=== PATIENT | male | born 1995 ===

== ENCOUNTER 2016-08-11 17:03 | Emergency (ER) | payer OTHER ==
[2016-08-11 17:12] VITALS: BMI 27.9
--- NOTE | 2016-08-11 17:17 | ED PDOC ---
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 States he fell and landed on shoulder while playing soccer. Denies LOC, nauea, vomiting, focal weakness, any other complaint. (JackieLudivina A) Past Medical History - Provider Review Nursing Documentation Reviewed: Yes <Ludivina Mejia A - Last Filed: 08/11/16 20:35> Family/Social History - Physician Review Nursing Documentation Reviewed: Yes Family/Social History: Unknown Family HX <Ludivina Mejia A - Last Filed: 08/11/16 20:35> Allergies/Home Meds <Wang Cloud - Last Filed: 08/11/16 18:39> <Ludivina Mejai A - Last Filed: 08/11/16 20:35> Allergies/Adverse Reactions: Allergies No Known Allergies Allergy (Verified 08/11/16 17:12) Home Medications: Home Meds Medication Instructions Recorded Confirmed No Known Home Med 08/11/16 08/11/16 Review of Systems - Physician Review All systems were reviewed & negative as marked: Yes - Review of Systems Constitutional: Normal Eyes: Normal ENT: Normal Respiratory: Normal Cardiovascular: Normal Gastrointestinal: Normal Genitourinary Male: Normal Musculoskeletal: Arthralgias (LEft shoulder pain) Skin: Normal Neurological: Normal Endocrine: Normal Hemo/Lymphatic: Normal Psychiatric: Normal <Ludivina Mejia A - Last Filed: 08/11/16 20:35> Physical Exam Vital Signs Reviewed: Yes Temperature: Afebrile Blood Pressure: Normal Pulse: Regular Respiratory Rate: Normal Appearance: Positive for: Well-Appearing, Non-Toxic, Comfortable Pain Distress: None Mental Status: Positive for: Alert and Oriented X 3 - Systems Exam Head: Present: Atraumatic, Normocephalic Pupils: Present: PERRL Extroacular Muscles: Present: EOMI Conjunctiva: Present: Normal Mouth: Present: Moist Mucous Membranes Neck: Present: Normal Range of Motion Respiratory/Chest: Present: Clear to Auscultation, Good Air Exchange. No: Respiratory Distress, Accessory Muscle Use Cardiovascular: Present: Regular Rate and Rhythm, Normal S1, S2. No: Murmurs Abdomen: Present: Normal Bowel Sounds. No: Tenderness, Distention, Peritoneal Signs Back: Present: Normal Inspection Upper Extremity: Present: NORMAL PULSES, Tenderness (LEft shoulder), Neurovascularly Intact, Capillary Refill < 2s, Deformity. No: Cyanosis, Edema, Normal ROM (Arm in a flex position unable to evaluate secondary to pain), Swelling, Temperature Abnormalties Lower Extremity: Present: Normal Inspection. No: Edema Neurological: Present: GCS=15, CN II-XII Intact, Speech Normal Skin: Present: Warm, Dry, Normal Color. No: Rashes Psychiatric: Present: Alert, Oriented x 3, Normal Insight, Normal Concentration <Diru,Happiness A - Last Filed: 08/11/16 20:35> Vital Signs Temp Pulse Resp BP Pulse Ox 08/11/16 19:39 85 18 132/72 98 08/11/16 18:44 94 H 18 148/97 H 100 08/11/16 17:55 98.9 F 89 20 136/87 100 08/11/16 17:20 100 H 18 149/100 H 98 08/11/16 17:12 97.9 F 116 H 20 159/119 H 100 - RAD Interpretation Radiology Orders: 08/11/16 17:14 SHOULDER LEFT [RAD] Stat 08/11/16 17:18 HUMERUS LEFT [RAD] Stat 08/11/16 18:23 SHOULDER LEFT [RAD] Stat - Medication Orders Current Medication Orders: Discontinued Medications Etomidate (Amidate) 10 mg IV STAT STA Stop: 08/11/16 18:03 Last Admin: 08/11/16 18:28 Dose: 10 MG eMAR Start Stop Document 08/11/16 18:28 EWO (Rec: 08/11/16 18:30 EWO [id number]) Intravenous Solution Start Date 08/11/16 Start Time 17:50 End Date 08/11/16 End time 17:55 Total Infusion Time 5 Fentanyl (Fentanyl) 100 mcg IV ONCE ONE Stop: 08/11/16 18:03 Last Admin: 08/11/16 18:31 Dose: 100 MCG eMAR Start Stop Document 08/11/16 18:31 EWO (Rec: 08/11/16 18:31 EWO [id number]) Intravenous Solution Start Date 08/11/16 Start Time 17:55 End Date 08/11/16 End time 17:56 Total Infusion Time 1 Morphine Sulfate (Morphine) 6 mg IVP STAT STA Stop: 08/11/16 17:15 Last Admin: 08/11/16 17:26 Dose: 6 MG IVP Administration Document 08/11/16 17:26 EWO (Rec: 08/11/16 17:26 EWO [id number]) Charges for Administration # of IVP Administrations 1 ED Procedural Sedation - Pre Anesthesia Assessment Past Medical History: Medications Reviewed Previous Surgies: Reviewed Family History/Social History: Reviewed - Physical Exam/Review of Systems Vital Signs Reviewed: Yes Cardiovascular: Regular Rate and Rhythm Respiratory/Chest: Clear to Auscultation, Good Air Exchange Neurological: GCS=15, CN II-XII Intact, Speech Normal, Motor Func Grossly Intact , Normal Sensory Function, Normal Cerebellar Funct, Other (+2 radial pulses. Axillary nerve intact on exam. ) Abdomen: denies: Tenderness, Distention Mental Status: Alert and Oriented X 3 - Pre-Procedure Airway Assessment History of difficult intubation or surgical airway (i.e trach):: No Inability to extend neck:: No Mouth opening less than two finger breadth:: No Diagnosis of sleep apnea:: No Less than three finger breadth to hyoid bone:: No ASA Criteria: 1 - Healthy, normal. 2 - Mild systemic disease (No functional limitations, mildline obesity, DM withot complications, Hypertention). 3 - Severe systemic disease (Some functional limitation, stable angina, morbid obesity, controlled COPD/Asthma/CHF). 4 - Sever systemic disease constant threat to life (Unstable angina, active symptoms of COPD/Asthma, CHF/ Hypertension. 5 - Moribund ASA Clarification: ASA I Mallampati (airway): Class I <Wang Cloud - Last Filed: 08/11/16 18:39> <Ludivina Mejia - Last Filed: 08/11/16 20:35> - Pre Anesthesia Assessment Chief Complaint: Upper Extremity Problem/Injury Nursing ED Procedural Sedation: ER Moderate Sedation Start: 08/11/16 18: 35 Freq: Status: Discharge Document 08/11/16 17:55 EWO (Rec: 08/11/16 18:41 JANET [id number]) Mod Sedation Time Out Process Time Out Process Patient identification (MR# and name Yes from ID Band) Procedure verified Yes Consent read aloud and agreed upon Yes Correct Site/Side marked and visibe to Yes team after prepping and draping (unless exempt) Prophylactic antibiotic given (if Not Applicable applicable) List all team members present Dr. Cloud, EMT Rich RN. TEDDY Hood Happiness All team members are in agreement Yes Pre-Procedure Mod Sedation Pre-Procedure Checklist Patient's identity verified by Patient stating name Patient stating [facility] ID bracelet Pre Procedure Checklist BP monitor Signed consent Ambu bag Patient IV Patient ID Oxygen Airway Code Cart Suction set up Pre Anesthesia Assessment Chief Complaint Upper Extremity Problem/Injury Past Medical History Medications Reviewed Allergies Reviewed Record Review Previous Surgies Reviewed Family History/Social History Reviewed Physical Exam/Review of Systems Vital Signs Reviewed Yes Cardiovascular Regular Rate and Rhythm Respiratory/Chest Clear to Auscultation Good Air Exchange Neurological GCS=15 Mental Status Alert and Oriented X 3 Level of Consciousness 1 = Alert Pre-Proceduer Airway Assessment History of difficult intubation or No surgical airway (i.e trach): Moderate Sedation VS & Pain Ax Level of Consciousness Level of Consciousness 1 = Alert Temperature Temperature (97.6 F-99.6 F) 98.9 F Pulse Pulse Rate (60-90) 78 Respirations Respiratory Rate (12-24) 18 Oxygen Delivery Method Room Air SPO2 (95-100) 100 O2 LPM (L/min) 2 Blood Pressure Blood Pressure (100/60-150/90) 139/87 Pain Pain Intensity 3 Pain Scale Used Numeric Intra-Procedure Vital Signs Vital Signs and Pain Assessment Blood Pressure (100/60-150/90) 159/92 Pulse Rate (60-90) 82 Respiratory Rate (12-24) 18 Level of Consciousness 3 = Frequently Drowsy, Easy to Arouse Pain Intensity 0 Intra-Procedure Vital Signs #2 Vital Signs and Pain Assessment Blood Pressure (100/60-150/90) 136/87 Pulse Rate (60-90) 89 Respiratory Rate (12-24) 20 Level of Consciousness 3 = Frequently Drowsy, Easy to Arouse REACT Score REACT Score Respirations Spontaneous Respirations > 10 Without Airway Energy Moves Legs - Head Lift Alertness Gentle Stimuli Only Circulation BP 80 - PreOp Full Pulse Temperature Axillary temperature is >96 degrees Farenheit Total 7 Created 08/11/16 18:35 EWO (Rec: 08/11/16 18:35 EWO [id number]) Edit Status 08/11/16 20:20 RAQUEL CESPEDES (Rec: 08/11/16 20:20 RAQUEL CESPEDES J- [id number]) Active=>Discharge Patient was in the supine position. Consent obtained by and TEDDY Florence. Cosigned by HÉCTOR Alan. Patient on Oxygen during procedure with great oxygenation. Was on monitor during procedure. Technique used: Traction retraction technique by me and EMT Rich pulling retraction. Patient's shoulder reduced successfully. Placed immediately in shoulder immobilizer. Post-reduction xray ordered. (Wang Cloud) - Intra-Procedure (Medications) Medications Given: Discontinued Medications Etomidate (Amidate) 10 mg IV STAT STA Stop: 08/11/16 18:03 Last Admin: 08/11/16 18:28 Dose: 10 MG eMAR Start Stop Document 08/11/16 18:28 EWO (Rec: 08/11/16 18:30 EWO [id number]) Intravenous Solution Start Date 08/11/16 Start Time 17:50 End Date 08/11/16 End time 17:55 Total Infusion Time 5 Fentanyl (Fentanyl) 100 mcg IV ONCE ONE Stop: 08/11/16 18:03 Last Admin: 08/11/16 18:31 Dose: 100 MCG eMAR Start Stop Document 08/11/16 18:31 EWO (Rec: 08/11/16 18:31 EWO [id number]) Intravenous Solution Start Date 08/11/16 Start Time 17:55 End Date 08/11/16 End time 17:56 Total Infusion Time 1 Morphine Sulfate (Morphine) 6 mg IVP STAT STA Stop: 08/11/16 17:15 Last Admin: 08/11/16 17:26 Dose: 6 MG IVP Administration Document 08/11/16 17:26 EWO (Rec: 08/11/16 17:26 [place] [id number]) Charges for Administration # of IVP Administrations 1 Etomidate and Fentanyl given during procedure. Morphine was given much earlier as documented by RN note. (Wang Cloud) - Post-Procedure Post Procedure Note: 6:39 pm: Patient awake, alert and oriented post sedation. His pain is controlled and he feels much much better. He denies any numbness or weakness. Neuro exam is normal. Sensation intact. Axillary nerve sensation intact. Patient post-reduction x-ray shows no dislocation. (Wang Cloud) Disposition/Present on Arrival <Wang Cloud - Last Filed: 08/11/16 18:39> - Present on Arrival Any Indicators Present on Arrival: No History of DVT/PE: No History of Uncontrolled Diabetes: No Urinary Catheter: No History of Decub. Ulcer: No History Surgical Site Infection Following: None - Disposition Have Diagnosis and Disposition been Completed?: Yes Disposition Time: 20:25 Patient Plan: Discharge <Ludivina Mejia - Last Filed: 08/11/16 20:35> - Disposition Diagnosis: Shoulder dislocation Disposition: HOME/ ROUTINE Condition: STABLE Discharge Instructions (ExitCare): Shoulder Dislocation (ED) Additional Instructions: Follow up with your doctor/Orthopedic Return to ED for any new or worsening symptoms Referrals: PCP,RICHELLE [Primary Care Provider] - Follow up with primary Ozzy Brennan MD [Staff Provider] - Follow up with primary
[2016-08-11] MEDS ORDERED: Etomidate 20 mg/10ml Inj IVP STA (18:01)
[2016-08-11] MEDS ORDERED: Etomidate 20 mg/10ml Inj IV STA (18:02)
--- NOTE | 2016-08-11 18:11 | RAD ---
PROCEDURE: Radiographs of the Left Shoulder HISTORY: shoulder pain s/p trauma COMPARISON: prior. FINDINGS: BONES: There is no acute displaced fracture or dislocation. JOINTS: There is apparent glenohumeral dislocation. SOFT TISSUES: Normal. OTHER FINDINGS: None. IMPRESSION: Limited examination as only one view was possible due to patient's condition allowing for this,, apparent glenohumeral dislocation. No acute displaced fracture.
--- NOTE | 2016-08-11 18:11 | RAD ---
PROCEDURE: Radiographs of the left humerus. HISTORY: arm pain s/p trauma COMPARISON: None. FINDINGS: BONES: There is no acute displaced fracture. There is inferior glenohumeral dislocation. SOFT TISSUES: Normal. OTHER FINDINGS: None. IMPRESSION: Inferior glenohumeral dislocation. No acute fracture.
[2016-08-11 18:42] VITALS: TEMP 98.9
[2016-08-11 18:45] VITALS: RESP 18
[2016-08-11 19:40] VITALS: BP 132/72; PULSE 85; O2SAT 98
--- NOTE | 2016-08-12 10:59 | RAD ---
PROCEDURE: Radiographs of the Left Shoulder HISTORY: Post reduction COMPARISON: 08/11/2016 at 5:28 p.m. FINDINGS: BONES: Bone alignment and mineralization are normal. There is no acute fracture JOINTS: There has been interval successful closed reduction. Glenohumeral and acromioclavicular joints are normal. SOFT TISSUES: Normal. OTHER FINDINGS: None. IMPRESSION: Successful closed reduction of glenohumeral dislocation.
== END 2016-08-11 20:11 | disposition home or self-care (01) ==
LOC: ED 17:03
DX: S43.035A Inferior dislocation of left humerus, initial encounter (principal); W18.39XA Other fall on same level, initial encounter; Y93.66 Activity, soccer; Y92.39 Other specified sports and athletic area as the place of occurrence of the external cause
CPT/HCPCS: 23655; 73030; 73060; 96374; 99285; J2270; J3010

== ENCOUNTER 2016-12-28 10:20 | Emergency (ER) | payer OTHER ==
[2016-12-28 10:53] VITALS: BMI 26.9
[2016-12-28 11:06] VITALS: BP 132/89; PULSE 78; RESP 19; TEMP 98.4; O2SAT 97
--- NOTE | 2016-12-28 11:06 | ED PDOC ---
Arrival/HPI - General Chief Complaint: ENT Problem Time Seen by Provider: 12/28/16 11:06 Historian: Patient - History of Present Illness Narrative History of Present Illness (Text): 12/28/16 11:06 21 y/o male, no significant pmh, nkda, c/o rt. ear pain x 2 days with no fever or chills. aching pain, no discharge, no change in hearing, no fever or chills , no night sweat, no coughing, no palpitation or chest pain, no other medical or psychological complaints. Past Medical History - Provider Review Nursing Documentation Reviewed: Yes - Infectious Disease Hx of Infectious Diseases: None - Psychiatric Hx Substance Use: No - Anesthesia Hx Anesthesia: No Family/Social History - Physician Review Nursing Documentation Reviewed: Yes Family/Social History: Unknown Family HX Smoking Status: Never Smoked Hx Alcohol Use: Yes Hx Substance Use: No Allergies/Home Meds Allergies/Adverse Reactions: Allergies No Known Allergies Allergy (Verified 12/28/16 10:58) Review of Systems - Review of Systems Constitutional: absent: Fatigue, Fevers Eyes: absent: Vision Changes ENT: Other (rt. ear pain). absent: Hearing Changes Respiratory: absent: SOB, Cough Gastrointestinal: absent: Abdominal Pain, Nausea, Vomiting Skin: absent: Rash, Pruritis Physical Exam Vital Signs Reviewed: Yes Vital Signs Temp Pulse Resp BP Pulse Ox 12/28/16 10:59 98.4 F 78 19 132/89 97 Temperature: Afebrile Blood Pressure: Normal Pulse: Regular Respiratory Rate: Normal Appearance: Positive for: Well-Appearing, Non-Toxic, Comfortable Pain Distress: Mild Mental Status: Positive for: Alert and Oriented X 3 - Systems Exam Head: Present: Atraumatic, Normocephalic Pupils: Present: PERRL Extroacular Muscles: Present: EOMI Conjunctiva: Present: Normal Ears: Present: Other (Ears: rt. TM erythematous and intact, lt. TM shwetha color and intact, bilateral auditory canals non-erythematous, no mastoid tenderness. ) Mouth: Present: Moist Mucous Membranes Neck: Present: Normal Range of Motion Respiratory/Chest: Present: Clear to Auscultation, Good Air Exchange. No: Respiratory Distress, Accessory Muscle Use Cardiovascular: Present: Regular Rate and Rhythm, Normal S1, S2. No: Murmurs Abdomen: Present: Normal Bowel Sounds. No: Tenderness, Distention, Peritoneal Signs Back: Present: Normal Inspection Upper Extremity: Present: Normal Inspection. No: Cyanosis, Edema Lower Extremity: Present: Normal Inspection. No: Edema Neurological: Present: GCS=15, CN II-XII Intact, Speech Normal Skin: Present: Warm, Dry, Normal Color. No: Rashes Psychiatric: Present: Alert, Oriented x 3, Normal Insight, Normal Concentration Medical Decision Making ED Course and Treatment: 12/28/16 11:25 -Discharge home with amoxicillin, motrin, follow up with your own pmd and ENT within 2 days, return to the ER for any new or worsening signs or symptoms. - PA / CARRY OUT CLERK / Resident Statement / has reviewed & agrees with the documentation as recorded. Disposition/Present on Arrival - Present on Arrival Any Indicators Present on Arrival: No History of DVT/PE: No History of Uncontrolled Diabetes: No Urinary Catheter: No History of Decub. Ulcer: No History Surgical Site Infection Following: None - Disposition Have Diagnosis and Disposition been Completed?: Yes Diagnosis: Otitis media Disposition: HOME/ ROUTINE Disposition Time: 11:26 Patient Plan: Discharge Condition: GOOD Additional Instructions: -Discharge home with amoxicillin, motrin, follow up with your own pmd and ENT within 2 days, return to the ER for any new or worsening signs or symptoms. Prescriptions: Amoxicillin 500 mg PO TID #30 tab Ibuprofen [Motrin Tab] 600 mg PO QID PRN #24 tab PRN Reason: Other Referrals: PCP,NO [Primary Care Provider] - Follow up with primary Naveen Saenz DO [Staff Provider] - Follow up with primary Forms: [employer] (Amharic), WORK NOTE
== END 2016-12-28 11:33 | disposition home or self-care (01) ==
LOC: ED 10:20
DX: H66.91 Otitis media, unspecified, right ear (principal)